=== PATIENT | male | born 1960 | race Caucasian/White ===

== ENCOUNTER 2018-08-10 07:56 | Day surgery (SDC) | payer BC ==
[2018-08-01 13:31] VITALS: BMI 34.8
[2018-08-10] MEDS ORDERED: BENZOIN/ALOE VERA/STORAX/TOLU 58 ML BOTTLE ONE (12:00)
[2018-08-10] MEDS ORDERED: DEXAMETHASONE SOD PHOSPHATE/PF 10 MG/ML SDV ONE (12:47)
[2018-08-10] MEDS ORDERED: MIDAZOLAM HCL 2 MG/2 ML SINGLE DOSE VIAL ONE (12:48)
[2018-08-10] MEDS ORDERED: DEXMEDETOMIDINE HCL 200 MCG/2 ML ML IVPB ONE (13:02)
[2018-08-10] MEDS ORDERED: DEXAMETHASONE SOD PHOSPHATE 4 MG/1 ML VIAL ONE (13:32)
[2018-08-10] MEDS ORDERED: ONDANSETRON 4 MG/2 ML VIAL ONE (13:32)
[2018-08-10] MEDS ORDERED: KETOROLAC TROMETHAMINE 30 MG/1 ML VIAL ONE (13:32)
[2018-08-10] MEDS ORDERED: GLYCOPYRROLATE 0.2 MG/1 ML VIAL ONE (13:32)
[2018-08-10] MEDS ORDERED: ceFAZolin SODIUM 1 GM VIAL ONE (13:32)
[2018-08-10] MEDS ORDERED: PROPOFOL 20 ML ONE ×2 (13:59)
[2018-08-10] MEDS ORDERED: BUPIVACAINE HCL 0.25% 125 MG/50 ML VIAL NR ONE (15:10)
[2018-08-10] MEDS ORDERED: PROMETHAZINE HCL 25 MG/1 ML VIAL IVPB PRN (15:34)
[2018-08-10] MEDS ORDERED: oxyCODONE HCL 5 MG TABLET PO PRN ×2 (15:34)
[2018-08-10] MEDS ORDERED: ONDANSETRON 4 MG/2 ML VIAL IVPUSH PRN (15:34)
--- NOTE | 2018-08-10 15:37 | PN ---
Progress Note (short form) - Note Progress Note: 58M s/p RIGHT shoulder open Racquel procedure, Neer Decompression, & rotator cuff repair POD #0. -Pain control: Celebrex & oxycodone PRN. -Incentive spirometry. -No chemical DVT PPx. -RUE sling. -No RIGHT shoulder ROM. -Daily RIGHT elbow, wrist & hand ROM. -Keep dressing clean & dry. -f/u in [facility] on 08/17/2018; call for appointment; . Bryan Vasquez MD (Orthopaedic Surgery).
--- NOTE | 2018-08-10 15:38 | OP ---
Operative Note - Note: Operative Date: 08/10/18 Pre-Operative Diagnosis: Right shoulder impingement syndrome Operation: Right shoulder open: 1. Racquel procedure. 2. Neer decompression. 3. Rotator cuff repair Post-Operative Diagnosis: Same as Pre-op Surgeon: Bryan Vasquez Upholsterer Apprentice: Raji Vasquez Anesthesiologist/AIR POLLUTION CONTROL ENGINEER: Josemanuel Hutson Anesthesia: General, Local Specimens Removed: Excision arthroplasty right AC joint Estimated Blood Loss (mls): 50 Fluid Volume Replaced (mls): 750 (Crystalloid) Operative Report Dictated: Yes
--- NOTE | 2018-08-10 15:51 | OP ---
DATE OF OPERATION: 08/10/2018 SURGEON: Bryan Vasquez MD CLINICAL NURSE SPECIALIST: Raji Vasquez MD PREOPERATIVE DIAGNOSIS: Rotator cuff impingement, right shoulder, with associated rotator cuff tear. POSTOPERATIVE DIAGNOSIS: Rotator cuff impingement, right shoulder, with associated rotator cuff tear. OPERATION PERFORMED: Right shoulder open: 1. Racquel procedure: excision arthroplasty lateral clavicle. 2. Neer decompression: transection of coracoacromial ligament and undercutting acromioplasty. 3. Repair of chronic rotator cuff tear. 4. Debridement of calcific bursa. ANESTHESIA: Conscious sedation with associated scalene block. BLOOD LOSS: Approximately 50 mL. OPERATION IN DETAIL: The patient was placed in a beach-chair shoulder-frame aguilar. Right upper extremity was free draped. The shoulder region was prepped with routine Betadine scrub solution, wiped with alcohol, and DuraPrep applied. Time-out was called. Imaging was available for intraoperative evaluation. The incision was made in the lines of Eugene from the tip of the coracoid with dissection medial to the tip of the acromion. The plane of subcutaneous tissue was dissected down to the muscle. The superior flap was lifted, so that a Hohmann could be placed under the clavicle distally from behind. A 2nd Hohmann was placed anteriorly under the lateral aspect of the clavicle at the level just proximal to the acromioclavicular joint. This was readily identified. Using an oscillating saw, a beveled 1-cm resection of the clavicle was performed in keeping with an excision arthroplasty of the clavicle and AC joint. Once this had been performed, the deltoid muscle was gently retracted and lifted off the CA ligament. A peanut facilitated this. Hemostasis was achieved with bipolar Bovie. The CA ligament was transected from along the entire length of the ligament, that is from the distal border of the ligament right proximal through the bulky mass of the ligament right up into the shoulder joint itself and the subacromial space. Attempts at opening of the space with finger dissection were really difficult because of the adherence of the bursa to the undersurface of the acromion. At that point, utilizing Hohmann wedge retractors, the soft tissues were gently lifted off the medial aspect of the acromion and using an oscillating saw with multiple saw cuts being made, an acromioplasty was performed resecting the undersurface of the acromion by at least 0.75 cm. This opened up the subacromial space completely. The bursa was then clearly seen under vision. This had speckled calcification from dystrophic calcification as well as from previous cortisone injections. This was appropriately debrided entirely to enable a complete visualization of the rotator cuff. A small tear anteriorly in the mid-section of the tendon was identified. The edges were resected, and a No. Vicryl suture was utilized in order to close off this tear. The excision arthroplasty was then completed by suturing the capsule on the lateral side to the capsule on the medial side. No detachment of the deltoid off the clavicle or acromion was performed. Once the entire repair was performed, a careful visual inspection of the rotator cuff revealed no other tears, that was from the back right to the front medial right through to lateral. Visualization of the cuff as I flexed the shoulder and applied rotational maneuvers of the actual arm revealed not a single sign of any rub-off tissue of bone against tissue that is sandwiching any of the subacromial soft tissue elements between the humeral head and the acromion. Wounds were thoroughly lavaged. Hemostasis was achieved. Closure subcutaneous 1 and 2-0 Vicryl, skin with 3-0 Monocryl with Steri-Strips. Operation went well. No complications. MD AMY Bergman/[id number] MTDD
[2018-08-10 17:06] VITALS: TEMP 97.5
[2018-08-10 17:47] VITALS: BP 116/77; PULSE 59
[2018-08-10] MEDS ORDERED: ATORVASTATIN CA 40 MG TABLET (FP) PO SCH (22:00)
[2018-08-10] MEDS ORDERED: metoPROLOL SUCCINATE 25 MG TAB.SR.24H (FP) PO SCH (22:00)
--- NOTE | 2018-08-14 15:03 | PATH ---
Surgical Pathology Report Patient Name: STEPHANE LIVINGSTON Med. Rec. #: [id number] /Age/Gender: 1960 (Age: 58) / M Account: [id number] Location: [facility] AMBULATORY Taken: 08/10/2018 Received: 08/10/2018 Reported: 08/14/2018 Physicians: Bryan Vasquez M.D. Specimen(s) Received LATERAL CLAVICLE AND ACROMION RIGHT SHOULDER Clinical History Impingement syndrome and rotator cuff tear right shoulder Final Diagnosis LATERAL CLAVICLE AND ACROMION, RIGHT SHOULDER, EXCISION: FIBROCONNECTIVE AND CARTILAGINOUS TISSUE WITH DEGENERATIVE CHANGE. FRAGMENTS OF BONE WITH TRILINEAGE HEMATOPOIETIC MARROW. Electronically Signed Chente Roland M.D. Gross Description Received in formalin labeled "lateral clavicle and acromion right," is a 4.0 x 2.0 x 1.4 cm thomason-brown, irregular portion of bone. Also received within the same container is a 4.0 x 3.2 x 0.8 cm aggregate of thomason brown bone and soft tissue fragments. Sawdust Drier sections are submitted in one cassette, following decalcification. /08/13/2018 saudi08/13/2018
== END 2018-08-10 17:40 | disposition home or self-care (01) ==
LOC: FASU 07:56
PROVIDERS: ATTEND Orthopaedic Surgery Orthopaedic Surgery of the Spine
PROC: 0MN10ZZ Release Right Shoulder Bursa and Ligament, Open Approach (ICD-10-PCS; 2018-08-10)
PROC: 0LQ10ZZ Repair Right Shoulder Tendon, Open Approach (ICD-10-PCS; 2018-08-10)
PROC: 0PB90ZZ Excision of Right Clavicle, Open Approach (ICD-10-PCS; principal; 2018-08-10 13:58)
DX: M75.121 Complete rotator cuff tear or rupture of right shoulder, not specified as traumatic (principal); M75.41 Impingement syndrome of right shoulder
CPT/HCPCS: 88304-TC; 88311-TC; 94760